=== PATIENT | male | born 1975 | race Caucasian/White ===

== ENCOUNTER 2025-01-05 12:59 | Emergency (ER) | payer OTHER ==
[~2025-01-05] VITALS: Ht 177.8 cm; Wt 72.4 kg
[2025-01-05 13:03] VITALS: TEMP 98.1
[2025-01-05 16:39] VITALS: BP 148/102; O2SAT 98
== END 2025-01-05 16:41 | disposition home or self-care (01) ==
LOC: M ED 12:59
DX: J06.9 Acute upper respiratory infection, unspecified (principal); B34.8 Other viral infections of unspecified site